=== PATIENT | female | born 1995 | race Caucasian/White ===

== ENCOUNTER 2018-05-05 19:13 | Emergency (ER) | payer OTHER ==
[2018-05-05 19:39] VITALS: BP 129/66
[2018-05-05] MEDS ORDERED: predniSONE TAB* 20 MG PO ONE (20:34)
--- NOTE | 2018-05-05 20:36 | UC ---
General HPI - HPI Summary HPI Summary: Patient says complaining of a 2-3 day hx of a "bad cough". With it, she reports chest congestion, wheezing and at times short of breath. She denies any history of asthma or fever. She states that whenever she gets sick with anything like bronchitis it makes her wheeze thus she has an albuterol inhaler. She's been using the inhaler with only partial relief. - History of Current Complaint Chief Complaint: UCRespiratory Stated Complaint: COUGH/CONGESTION/ACHY Time Seen by Provider: 05/05/18 20:26 Hx Obtained From: Patient Hx Last Menstrual Period: 04/25/18 Onset/Duration: Gradual Onset Pain Intensity: 0 Associated Signs & Symptoms: Positive: Cough, SOB, Wheezing. Negative: Fever - Allergy/Home Medications Allergies/Adverse Reactions: Allergies Allergy/AdvReac Type Severity Reaction Status Date / Time cashew nut Allergy Eyes Verified 05/05/18 19:39 Itchy/Swollen/Red/Watery Home Medications: Home Medications Albuterol HFA INHALER* [Ventolin HFA Inhaler*] 2 puff INH Q4H PRN 05/05/18 [ History Confirmed 05/05/18] PMH/Surg Hx/FS Hx/Imm Hx Respiratory History: Bronchitis - Surgical History Surgical History: None - Family History Known Family History: Positive: Other - ca Negative: Hypertension, Diabetes - Social History Occupation: Student Lives: Dormitory/Roommates Alcohol Use: Weekly Substance Use Type: None Smoking Status (MU): Never Smoked Tobacco - Immunization History Vaccination Up to Date: Yes Review of Systems Constitutional: Negative Skin: Negative Eyes: Negative ENT: Negative Respiratory: Shortness Of Breath, Cough Cardiovascular: Negative Gastrointestinal: Negative Genitourinary: Negative Motor: Negative Neurovascular: Negative Musculoskeletal: Negative Neurological: Negative Psychological: Negative Is Patient Immunocompromised?: No All Other Systems Reviewed And Are Negative: Yes Physical Exam Triage Information Reviewed: Yes Appearance: Well-Appearing Vital Signs: Initial Vital Signs Temp 98.7 F 05/05/18 19:34 Pulse 63 05/05/18 19:34 Resp 16 05/05/18 19:34 BP 129/66 05/05/18 19:34 Pulse Ox 98 05/05/18 19:34 Vital Signs Reviewed: Yes Eyes: Positive: Conjunctiva Clear ENT: Positive: Pharynx normal, TMs normal. Negative: Nasal congestion, Nasal drainage Neck: Positive: Supple, Nontender, No Lymphadenopathy Respiratory: Positive: Lungs clear, No accessory muscle use, Decreased breath sounds, Other: - Bronchospastic cough Cardiovascular: Positive: RRR, No Murmur Abdomen Description: Positive: Nontender, No Organomegaly, Soft Bowel Sounds: Positive: Present Musculoskeletal: Positive: ROM Intact Neurological: Positive: Alert Psychological: Positive: Age Appropriate Behavior Skin Exam: Normal Course/Dx - Course Course Of Treatment: Nontoxic. Not hypoxic. No concern for pneumonia or pulmonary embolus. - Differential Dx - Multi-Symptom Provider Diagnoses: acute cough. bronchospasm Discharge - Sign-Out/Discharge Documenting (check all that apply): Patient Departure All imaging exams completed and their final reports reviewed: No Studies - Discharge Plan Condition: Stable Disposition: HOME Prescriptions: predniSONE [Prednisone 20 MG TAB] 40 mg PO DAILY 2 Days #4 tablet Patient Education Materials: Bronchospasm (ED), Acute Cough (ED) Forms: *School Release Referrals: [facility] [Outside] - 5 Days Additional Instructions: USE THE ALBUTEROL INHALER 2 PUFFS EVERY 6 HOURS - Billing Disposition and Condition Condition: STABLE Disposition: Home
== END 2018-05-05 20:43 | disposition home or self-care (01) ==
LOC: UCCORT 19:13
DX: R05 Cough (principal); J98.01 Acute bronchospasm; Z91.018 Allergy to other foods
CPT/HCPCS: 99212; G0463; J7512